=== PATIENT | male | born 1960 | race Asian ===

== ENCOUNTER 2017-03-11 04:45 | Emergency (ER) | payer MEDICARE ==
[2017-03-11] MEDS: ASPIRIN 81 MG TAB PO (07:16)
== END 2017-03-11 07:20 | disposition home or self-care (01) ==
LOC: FTE 04:45
DX: Z76.0 Encounter for issue of repeat prescription (principal); E11.9 Type 2 diabetes mellitus without complications; F17.210 Nicotine dependence, cigarettes, uncomplicated; Z79.82 Long term (current) use of aspirin; Z79.84 Long term (current) use of oral hypoglycemic drugs
CPT/HCPCS: 99281

== ENCOUNTER 2017-03-12 19:05 | Emergency (ER) | payer MEDICARE ==
[2017-03-12 20:18] LABS: ADD MAN DIFF? NO
[2017-03-12 20:22] LABS: WHITE BLOOD COUNT 5.7 10^3/ul (4.8-10.8)
[2017-03-12 20:22] LABS: BASOPHILS % 0.4 % (0.0-2.0); EOSINOPHILS # 0.1 10^3/ul (0.0-0.5); EOSINOPHILS % 1.9 % (0.0-7.0); HEMATOCRIT 37.5 % (42.0-52.0); HEMOGLOBIN 12.2 g/dl (14.0-18.0); LYMPHOCYTES # 1.6 10^3/ul (0.8-2.9); LYMPHOCYTES % 28.6 % (15.0-51.0); MEAN CORPUSCULAR HEMOGLOBIN 28.6 pg (29.0-33.0); MEAN CORPUSCULAR HGB CONC 32.5 g/dl (32.0-37.0); MEAN PLATELET VOLUME 9.8 fl (7.4-10.4); MONOCYTE # 0.4 10^3/ul (0.3-0.9); MONOCYTES % 6.4 % (0.0-11.0); NEUTROPHIL # 3.5 10^3/ul (1.6-7.5); NEUTROPHILS % 62.5 % (39.0-77.0); PLATELET COUNT 289 10^3/UL (140-415); RED BLOOD COUNT 4.26 10^6/ul (4.70-6.10); RED CELL DISTRIBUTION WIDTH 12.4 % (11.5-14.5)
[2017-03-12 20:47] LABS: ADD UMIC YES; ALANINE AMINOTRANSFERASE 33 IU/L (13-69); ALBUMIN 3.9 g/dl (3.3-4.9); ALKALINE PHOSPHATASE 95 IU/L (42-121); ANION GAP 16 (8-16); ASPARTATE AMINO TRANSFERASE 22 IU/L (15-46); BILIRUBIN,INDIRECT 0.1 mg/dl (0-1.1); BILIRUBIN,TOTAL 0.1 mg/dl (0.2-1.3); BLOOD UREA NITROGEN 19 mg/dl (7-20); CALCIUM 8.9 mg/dl (8.4-10.2); CANNABINOIDS Positive (NEGATIVE); CARBON DIOXIDE 23 mmol/L (21-31); CHLORIDE 97 mmol/L (97-110); POTASSIUM 4.4 mmol/L (3.5-5.1); SODIUM 132 mmol/L (135-144); TOTAL PROTEIN 6.9 g/dl (6.1-8.1); UR ASCORBIC ACID NEGATIVE (NEGATIVE); UR BACTERIA FEW /HPF (NONE SEEN); UR BILIRUBIN (Dip) NEGATIVE (NEGATIVE); UR BLOOD (Dip) NEGATIVE (NEGATIVE); UR CLARITY CLEAR (CLEAR); UR COLOR COLORLESS (YELLOW); UR GLUCOSE (Dip) 3+ mg/dL (NEGATIVE); UR KETONES (Dip) NEGATIVE (NEGATIVE); UR LEUKOCYTE ESTERASE (Dip) 3+ Leu/ul (NEGATIVE); UR NITRITE (Dip) NEGATIVE (NEGATIVE); UR RBC 3 /HPF (0-5); UR SPECIFIC GRAVITY (Dip) 1.012 (1.003-1.030); UR TOTAL PROTEIN (Dip) NEGATIVE (NEGATIVE); UR UROBILINOGEN (Dip) NEGATIVE (NEGATIVE); UR WBC 17 /HPF (0-5)
[2017-03-12 20:48] LABS: AMPHETAMINE/METHAMPHETAMINE Negative (NEGATIVE); BARBITURATES Negative (NEGATIVE); BENZODIAZEPINES Negative (NEGATIVE); COCAINE Negative (NEGATIVE); OPIATES Negative (NEGATIVE)
[2017-03-12 20:50] LABS: ACETAMINOPHEN < 10.0 ug/ml (10.0-30.0); ETHANOL < 10.0 mg/dl; GLUCOSE 546 mg/dl (70-220); SALICYLATE < 1.0 mg/dl (5.0-30.0)
[2017-03-12] MEDS ORDERED: SOD CHLORIDE 0.9% 1,000 ML IV (21:00)
[2017-03-12] MEDS ORDERED: ARIPIPRAZOLE 5 MG TAB PO (21:14)
[2017-03-12] MEDS: INSULIN REGULAR, HUMAN 100 UNIT/1 ML 3ML VIAL SC (21:29)
[2017-03-12] MEDS ORDERED: GLUCOSE GEL 15 GRAM TUBE BUCCAL (21:30)
[2017-03-12] MEDS ORDERED: DEXTROSE 50% 50 ML SYRINGE IV ×2 (21:30)
[2017-03-12] MEDS ORDERED: QUETIAPINE 25 MG TAB PO (21:30)
[2017-03-12] MEDS ORDERED: GLUCOSE GEL 15 GRAM TUBE PO ×2 (21:30)
[2017-03-12] MEDS ORDERED: GLUCAGON 1 MG INJ IM (21:30)
== END 2017-03-12 21:52 | disposition home or self-care (01) ==
LOC: E/R 19:05
DX: F22 Delusional disorders (principal); F20.0 Paranoid schizophrenia; N30.00 Acute cystitis without hematuria; E11.65 Type 2 diabetes mellitus with hyperglycemia; I10 Essential (primary) hypertension; Z79.82 Long term (current) use of aspirin; Z79.84 Long term (current) use of oral hypoglycemic drugs; Z95.0 Presence of cardiac pacemaker; Z91.14 Patient's other noncompliance with medication regimen
CPT/HCPCS: 36415; 80053; 80306; 80307; 81001; 85025; 87086; 96372; 99284-25

== ENCOUNTER 2017-03-20 19:14 | Emergency (ER) | payer MEDICARE | END 2017-03-20 20:19 | disposition home or self-care (01) | LOC: FTE 19:14 → E/R 20:19 | DX: Z76.0 Encounter for issue of repeat prescription (principal); E11.9 Type 2 diabetes mellitus without complications; Z79.82 Long term (current) use of aspirin; Z79.84 Long term (current) use of oral hypoglycemic drugs; Z87.891 Personal history of nicotine dependence | CPT/HCPCS: 99281 ==

== ENCOUNTER 2017-03-21 21:17 | Emergency (ER) | payer SELFPAY, MEDICARE | END 2017-03-22 03:44 | disposition left against medical advice (07) | LOC: FTE 03-22 03:44 | DX: Z53.21 Procedure and treatment not carried out due to patient leaving prior to being seen by health care provider (principal) ==

== ENCOUNTER 2017-03-30 05:33 | Emergency (ER) | payer MEDICARE, OTHER | END 2017-03-30 07:00 | disposition home or self-care (01) | LOC: WCC 05:33 | DX: R45.1 Restlessness and agitation (principal); Z76.0 Encounter for issue of repeat prescription; Z79.84 Long term (current) use of oral hypoglycemic drugs; Z79.82 Long term (current) use of aspirin; Z87.891 Personal history of nicotine dependence | CPT/HCPCS: 99282 ==

== ENCOUNTER 2017-04-05 08:53 | Emergency (ER) | payer SELFPAY, MEDICARE | END 2017-04-05 09:12 | disposition left against medical advice (07) | LOC: FTE 09:12 | DX: Z53.21 Procedure and treatment not carried out due to patient leaving prior to being seen by health care provider (principal) ==

== ENCOUNTER 2017-04-06 11:04 | Emergency (ER) | payer SELFPAY | END 2017-04-06 11:56 | disposition left against medical advice (07) | LOC: FTE 11:56 | DX: Z53.21 Procedure and treatment not carried out due to patient leaving prior to being seen by health care provider (principal) ==

== ENCOUNTER 2017-04-07 03:31 | Emergency (ER) | payer SELFPAY | END 2017-04-07 04:10 | disposition left against medical advice (07) | LOC: FTE 03:31 | DX: Z53.21 Procedure and treatment not carried out due to patient leaving prior to being seen by health care provider (principal) ==

== ENCOUNTER 2017-04-17 23:32 | Emergency (ER) | payer MEDICARE | END 2017-04-18 02:53 | disposition home or self-care (01) | LOC: E/R 23:32 | DX: Z76.0 Encounter for issue of repeat prescription (principal); E11.9 Type 2 diabetes mellitus without complications; F17.210 Nicotine dependence, cigarettes, uncomplicated; Z79.82 Long term (current) use of aspirin; Z79.84 Long term (current) use of oral hypoglycemic drugs | CPT/HCPCS: 82962; 99283 ==

== ENCOUNTER 2017-04-26 01:20 | Emergency (ER) | payer MEDICARE | END 2017-04-26 03:13 | disposition home or self-care (01) | LOC: E/R 01:20 | DX: S39.011A Strain of muscle, fascia and tendon of abdomen, initial encounter (principal); E11.9 Type 2 diabetes mellitus without complications; X58.XXXA Exposure to other specified factors, initial encounter; Y92.9 Unspecified place or not applicable; Z87.891 Personal history of nicotine dependence; Z79.84 Long term (current) use of oral hypoglycemic drugs; Z79.82 Long term (current) use of aspirin | CPT/HCPCS: 71045; 99283-25 ==

== ENCOUNTER 2017-04-29 18:49 | Emergency (ER) | payer MEDICARE ==
[2017-04-29] MEDS: SOD CHLORIDE 0.9% 500 ML IV (20:05)
[2017-04-29 20:38] LABS: ANION GAP 15 (8-16); BLOOD UREA NITROGEN 16 mg/dl (7-20); CARBON DIOXIDE 28 mmol/L (21-31); CHLORIDE 95 mmol/L (97-110); CREATININE 0.86 mg/dl (0.61-1.24); POTASSIUM 3.9 mmol/L (3.5-5.1); SODIUM 134 mmol/L (135-144)
[2017-04-29 20:42] LABS: GLUCOSE 513 mg/dl (70-220)
== END 2017-04-29 21:25 | disposition home or self-care (01) ==
LOC: E/R 18:49
DX: E11.65 Type 2 diabetes mellitus with hyperglycemia (principal); F17.210 Nicotine dependence, cigarettes, uncomplicated; Z79.4 Long term (current) use of insulin; Z79.82 Long term (current) use of aspirin
CPT/HCPCS: 36415; 80048; 82962; 99284-25